=== PATIENT | female | born 1985 | race African-American/Black ===

== ENCOUNTER 2016-12-01 17:59 | Emergency (ER) | payer MEDICAID, OTHER ==
[~2016-12-01] VITALS: Ht 160 cm; Wt 104.0 kg
[2016-12-01] MEDS ORDERED: SODIUM CHLORIDE 0.9% 1,000 ML IV ONE (20:29)
[2016-12-01] MEDS ORDERED: ONDANSETRON HCL 4MG/2ML VIAL IV ONE (20:30)
[2016-12-01 21:03] LABS: CHLORIDE 107 mEq/L (98-107)
[2016-12-01 21:04] LABS: INDEX HEMOLYSI 1 (1-3); INDEX ICTERIC 1 (1-4); INDEX LIPEMIC 1 (1-3)
[2016-12-01 21:07] LABS: ANION GAP 10; CALCIUM 8.1 mg/dL (8.5-10.1); CARBON DIOXIDE 26 mEq/L (21-32); UREA NITROGEN BLOOD 17 mg/dL (7-21)
[2016-12-01 21:10] LABS: BASOPHILS % 0.4 % (0.0-2.0); EOSINOPHILS % 1.2 % (0.0-5.0); HEMATOCRIT. 33.2 % (36.0-48.0); LYMPHOCYTES % 21.5 % (20.0-50.0); MEAN CORPUSCULAR HEMOGLOBIN 30.1 pg (28.0-32.0); MEAN CORPUSCULAR VOLUME 91.1 fL (81.0-99.0); MONOCYTES % 8.5 % (2.0-8.0); NEUTROPHILS % 68.4 % (40.0-76.0); PLATELET 246 x1000/uL (130-400); RED BLOOD CELL COUNT 3.64 mill/uL (4.2-5.4); RED CELL DISTRIBUTION WIDTH 13.7 % (11.6-14.6); WHITE BLOOD COUNT 10.4 x1000/uL (4.5-11.0)
[2016-12-01 21:11] LABS: eGFR > 60 mL/min (>60)
[2016-12-01 21:27] LABS: B-HCG QUANTITATIVE 161274 mIU/mL (<3)
[2016-12-01 22:55] VITALS: BP 139/74
== END 2016-12-01 23:22 | disposition home or self-care (01) ==
LOC: ER 18:02
DX: O26.891 Other specified pregnancy related conditions, first trimester (principal); O21.9 Vomiting of pregnancy, unspecified; O16.1 Unspecified maternal hypertension, first trimester; R11.2 Nausea with vomiting, unspecified; R42 Dizziness and giddiness; R51 Headache; G43.909 Migraine, unspecified, not intractable, without status migrainosus
CPT/HCPCS: 36415; 76801; 80048; 84702; 85025; 86850; 86900; 86901; 96361; 96374; 99285; J2405; J7030; Z7610

== ENCOUNTER 2017-06-14 09:55 | Emergency (ER) | payer MEDICAID, OTHER ==
[~2017-06-14] VITALS: Ht 157.5 cm; Wt 100.0 kg
[2017-06-14] MEDS ORDERED: IBUPROFEN 600MG TABLET PO ONE (14:45)
[2017-06-14 15:30] VITALS: BP 166/96
== END 2017-06-14 16:21 | disposition home or self-care (01) ==
LOC: ER 09:55
DX: M54.5 Low back pain (principal); I10 Essential (primary) hypertension; V43.62XA Car passenger injured in collision with other type car in traffic accident, initial encounter; Y93.89 Activity, other specified; Y92.89 Other specified places as the place of occurrence of the external cause; Y99.8 Other external cause status
CPT/HCPCS: 99282

== ENCOUNTER 2017-08-09 22:53 | Emergency (ER) | payer MEDICAID, OTHER ==
[~2017-08-09] VITALS: Ht 157.5 cm; Wt 106.0 kg
[2017-08-10 00:30] VITALS: BP 161/88
== END 2017-08-10 04:45 | disposition left against medical advice (07) ==
LOC: ER 22:53
DX: R10.9 Unspecified abdominal pain (principal); Z53.21 Procedure and treatment not carried out due to patient leaving prior to being seen by health care provider

== ENCOUNTER 2020-10-29 02:58 | Emergency (ER) | payer MEDICAID ==
[~2020-10-29] VITALS: Ht 167.6 cm; Wt 95.0 kg
[2020-10-29 03:25] VITALS: BP 171/112
[2020-10-29] MEDS ORDERED: ACETAMINOPHEN 325MG TABLET PO PRN (03:30)
[2020-10-29 04:00] LABS: BASOPHILS % 0.6 % (0.0-2.0); EOSINOPHILS % 0.8 % (0.0-5.0); HEMATOCRIT. 39.9 % (36.0-48.0); LYMPHOCYTES % 16.1 % (20.0-50.0); MEAN CORPUSCULAR HEMOGLOBIN 30.2 pg (28.0-32.0); MEAN CORPUSCULAR VOLUME 92.3 fL (81.0-99.0); MEAN PLATELET VOLUME 8.5 fl (7.4-10.4); MONOCYTES % 7.5 % (2.0-8.0); PLATELET 263 x1000/uL (130-400); RED BLOOD CELL COUNT 4.32 mill/uL (4.2-5.4); RED CELL DISTRIBUTION WIDTH 12.9 % (11.6-14.6)
[2020-10-29 04:15] LABS: CHLORIDE 111 mEq/L (98-107)
[2020-10-29 04:19] LABS: CLARITY URINE TURBID (CLEAR); KETONES URINE 2+ (NEGATIVE); LEUKOCYTE ESTERASE URINE 3+ (NEGATIVE); NITRITE URINE POSITIVE (NEGATIVE); OCCULT BLOOD URINE 3+ (NEGATIVE); PH URINE 5.5 (4.5-8.0); PROTEIN URINE 4+ (NEGATIVE); SPECIFIC GRAVITY URINE 1.024 (1.005-1.030)
[2020-10-29 04:22] LABS: COLOR URINE BLOODY (YELLOW)
[2020-10-29 04:28] LABS: B-HCG QUANTITATIVE < 1 mIU/mL (<3)
[2020-10-29] MEDS ORDERED: SULF1TAB48 MT (04:53)
[2020-10-29] MEDS ORDERED: SULFAMETHOXAZOLE/TRIMETHOPRIM 800/160MG TABLET PO NR (05:30)
== END 2020-10-29 05:45 | disposition home or self-care (01) ==
LOC: ER 02:58
DX: N39.0 Urinary tract infection, site not specified (principal); D25.9 Leiomyoma of uterus, unspecified; F12.10 Cannabis abuse, uncomplicated; Z98.890 Other specified postprocedural states
CPT/HCPCS: 36415; 76830; 76856; 80053; 81003; 81025; 84702; 85025; 86850; 86900; 86901; 93005; 99285; Z7610

== ENCOUNTER 2021-04-06 12:07 | Emergency (ER) | payer MEDICAID, OTHER ==
[~2021-04-06] VITALS: Ht 160 cm; Wt 107.0 kg
[~2021-04-06 12:07] MED LIST: SULF1TAB48 MT
[2021-04-06] MEDS ORDERED: ACETAMINOPHEN 325MG TABLET PO ONE (15:15)
[2021-04-06 15:27] LABS: BASOPHILS % 0.7 % (0.0-2.0); CHLORIDE 108 mEq/L (98-107); EOSINOPHILS % 0.8 % (0.0-5.0); HEMATOCRIT. 36.4 % (36.0-48.0); LYMPHOCYTES % 22.5 % (20.0-50.0); MEAN CORPUSCULAR HEMOGLOBIN 30.8 pg (28.0-32.0); MEAN CORPUSCULAR VOLUME 93.1 fL (81.0-99.0); MEAN PLATELET VOLUME 8.1 fl (7.4-10.4); MONOCYTES % 8.5 % (2.0-8.0); NEUTROPHILS % 67.5 % (40.0-76.0); PLATELET 276 x1000/uL (130-400); RED BLOOD CELL COUNT 3.91 mill/uL (4.2-5.4); RED CELL DISTRIBUTION WIDTH 13.5 % (11.6-14.6)
[2021-04-06 15:39] VITALS: BP 134/83
[2021-04-06 15:40] LABS: B-HCG QUANTITATIVE 454 mIU/mL (<3)
== END 2021-04-06 17:23 | disposition home or self-care (01) ==
LOC: ER 12:07
DX: O03.9 Complete or unspecified spontaneous abortion without complication (principal); I10 Essential (primary) hypertension; Z98.890 Other specified postprocedural states
CPT/HCPCS: 36415; 76801; 80053; 81025; 84702; 85025; 86850; 86900; 93005; 99285

== ENCOUNTER 2022-04-19 08:24 | Emergency (ER) | payer MEDICAID, OTHER ==
[~2022-04-19] VITALS: Ht 162.6 cm; Wt 112.0 kg
[2022-04-19 08:30] VITALS: BP 182/88
[2022-04-19] MEDS ORDERED: KETOROLAC 60MG/2ML VIAL IM ONE (09:00)
[2022-04-19] MEDS ORDERED: HYDROCODONE/ACETAMINOPHEN 5/325MG TABLET PO ONE (09:00)
[2022-04-19] MEDS ORDERED: METHOCARBAMOL 750MG TABLET PO SCH (09:00)
[2022-04-19] MEDS ORDERED: TOPUD PO (10:22)
[2022-04-19] MEDS ORDERED: IBUP-2028 MT (10:22)
[2022-04-19] MEDS ORDERED: METH-653 MT (10:22)
== END 2022-04-19 10:51 | disposition home or self-care (01) ==
LOC: ER 08:24
DX: S73.191A Other sprain of right hip, initial encounter (principal); I10 Essential (primary) hypertension; F12.10 Cannabis abuse, uncomplicated; E66.9 Obesity, unspecified; Z68.41 Body mass index [BMI] 40.0-44.9, adult; Z98.890 Other specified postprocedural states; Z90.89 Acquired absence of other organs; W01.0XXA Fall on same level from slipping, tripping and stumbling without subsequent striking against object, initial encounter; Y93.51 Activity, roller skating (inline) and skateboarding; Y92.488 Other paved roadways as the place of occurrence of the external cause
CPT/HCPCS: 73502; 73552; 96372; 99284; J1885